=== PATIENT | female | born 1990 | race Hispanic/Latino ===

== ENCOUNTER 2018-07-01 10:17 | Emergency (ER) | payer OTHER, BC ==
[2018-07-01 10:21] VITALS: BMI 22.4
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
--- NOTE | 2018-07-01 12:59 | RAD ---
Date of service: 07/01/2018 PROCEDURE: Cervical Spine Radiographs. HISTORY: Pain. COMPARISON: None available. FINDINGS: BONES: Straightening of the normal cervical lordosis. No fracture. Dens Intact. DISC SPACES: Normal. SOFT TISSUES: Normal. No prevertebral soft tissue swelling. OTHER FINDINGS: The oblique view attempting to visualize the foramina somewhat limited in the upper cervical spine segment this is due to positioning and projection. No suspect foraminal stenosis appreciated. IMPRESSION: Cervical spine straightening. Can be seen with muscle spasm and/or patient positioning. No fracture or lytic lesion appreciated.
[2018-07-01 13:39] VITALS: BP 110/72; PULSE 75; RESP 16; TEMP 98.1
[2018-07-01 14:38] VITALS: O2SAT 99
== END 2018-07-01 13:30 | disposition home or self-care (01) ==
LOC: H.ER 10:17
DX: M43.6 Torticollis (principal); M62.838 Other muscle spasm; V43.52XA Car driver injured in collision with other type car in traffic accident, initial encounter; Y92.89 Other specified places as the place of occurrence of the external cause; F41.9 Anxiety disorder, unspecified